=== PATIENT | female | born 1995 | race Caucasian/White ===

== ENCOUNTER 2016-11-28 20:05 | Emergency (ER) | payer OTHER ==
[~2016-11-28] VITALS: Ht 162.6 cm; Wt 52.0 kg
[~2016-11-28 20:05] MED LIST: DEPO150I IM; METR-1 PO; ZOFR4TAB PO
[2016-11-28 20:06] VITALS: BP 125/65; PULSE 86; RESP 16; TEMP 98.4; O2SAT 99
[2016-11-28] MEDS ORDERED: TRAM50TA PO (20:21)
[2016-11-28] MEDS ORDERED: IBUP-232 PO (20:21)
--- NOTE | 2016-11-28 20:22 | PD ---
HPI Chief Complaint: Injury Time Seen by Provider: 20:14 Travel History International Travel<30 days: No Contact w/Intl Traveler<30days: No Traveled to known affect area: No History of Present Illness HPI 21 year-old female presents to emergency department for evaluation of right wrist pain. Pain began after moving several sandbags. She states now it is painful to move. Rates the pain an 8 out of 10. No alterations in sensation. She reports no known injury. No trauma. No other symptoms to report. PFSH Past Medical History Medical History: Denies Significant Hx Autoimmune Disease: No Cardiovascular Problems: No Diminished Hearing: No Gastrointestinal Disorders: Yes Glaucoma: No Genitourinary: Yes Hepatitis: No Hiatal Hernia: No Hypertension: No Medical other: Yes (LOW BACK PAIN) Musculoskeletal: No Neurologic: No Psychiatric: No Reproductive: Yes (ENDOMETRIOSIS) Respiratory: No Immunizations Current: Yes Migraines: Yes ?: Not : 1 Para: 0 Dilation and Curettage (D&C): Yes (D&C FOR ENDOMETRIOSIS) Past Surgical History Gynecologic Surgery: Yes (ENDOSCOPY) Pacemaker: No Other Surgery: No Social History Alcohol Use: Yes ("COUPLE TIMES PER MONTH") Tobacco Use: Yes (1/2 PPD) Substance Use: No Allergies-Medications (Allergen,Severity, Reaction): Coded Allergies: No Known Allergies (Verified , 11/28/16) Reported Meds & Prescriptions Reported Meds & Active Scripts Active Ibuprofen 600 Mg Tab 600 Mg PO Q8HR PRN Tramadol (Tramadol HCl) 50 Mg Tab 50 Mg PO Q6H PRN Flagyl (Metronidazole) 500 Mg Tab 500 Mg PO TID Zofran (Ondansetron HCl) 4 Mg Tab 4 Mg PO Q6HR PRN Review of Systems Except as stated in HPI: all other systems reviewed are Neg Physical Exam Narrative GENERAL: Well-nourished female patient, in no acute distress SKIN: Focused skin assessment warm/dry. HEAD: Atraumatic. Normocephalic. EYES: Pupils equal and round. No scleral icterus. No injection or drainage. ENT: No nasal bleeding or discharge. Mucous membranes pink and moist. NECK: Trachea midline. No JVD. CARDIOVASCULAR: Regular rate and rhythm. No murmur appreciated. RESPIRATORY: No accessory muscle use. Clear to auscultation. Breath sounds equal bilaterally. MUSCULOSKELETAL: No obvious deformities. No clubbing. No cyanosis. No edema. Patient is full flexion extension and rotation of the right wrist. She does report tenderness with palpation along the lateral wrist proximal to the thumb. No erythema or edema. Cap refill within normal limits. Sensation intact distal to be. NEUROLOGICAL: Awake and alert. No obvious cranial nerve deficits. Motor grossly within normal limits. Normal speech. Data Data Last Documented VS Vital Signs Date Time Temp Pulse Resp B/P (MAP) Pulse Ox O2 Delivery O2 Flow Rate FiO2 11/28/16 20:25 11/28/16 20:06 98.4 86 16 99 Room Air MDM Medical Decision Making Medical Screen Exam Complete: Yes Emergency Medical Condition: Yes Medical Record Reviewed: Yes Differential Diagnosis Tendinitis versus osteoarthritic versus muscle strain versus unlikely fracture Narrative Course 21 year-old female presents for his primary for evaluation right wrist pain. With no history of trauma and knee been able to palpate all of the bony structures without exacerbating pain, x-ray imaging will not be done at this time. Based the patient's history and assessment, this likely a tendinitis. Patient was placed in an Bear wrap and encouraged to use her wrist brace. She is encouraged to follow-up with primary care provider and return immediately with any acute worsening of symptoms. Diagnosis Primary Impression: Right wrist tendonitis Referrals: Primary Care Physician Patient Instructions: General Instructions, Tendinitis (ED) Additional Instructions: Brace, ice and elevate to reduce pain and swelling Follow-up with a primary care provider Seek outpatient hand specialist evaluation of symptoms persist Return immediately with any acute worsening of symptoms Med/Other Pt SpecificInfo: Prescription(s) given Scripts Ibuprofen (Ibuprofen) 600 Mg Tab 600 MG PO Q8HR Y for PAIN, #30 TAB 0 Refills Prov: Angie Funez 11/28/16 Tramadol (Tramadol) 50 Mg Tab 50 MG PO Q6H Y for PAIN GREATER THAN 5, #6 TAB 0 Refills Prov: Angie Funez 11/28/16 Disposition: 01 DISCHARGE HOME Condition: Stable Angie Funez Nov 28, 2016 20:22
== END 2016-11-28 20:49 | disposition home or self-care (01) ==
LOC: EDTENT 20:05
DX: M77.8 Other enthesopathies, not elsewhere classified (principal); Z72.0 Tobacco use
CPT/HCPCS: 99283

== ENCOUNTER 2016-12-05 15:59 | Emergency (ER) | payer OTHER ==
[~2016-12-05] VITALS: Ht 162.6 cm; Wt 52.0 kg
[~2016-12-05 15:59] MED LIST changes: +IBUP-232 PO; +TRAM50TA PO
[2016-12-05 16:01] VITALS: BP 154/68; PULSE 100; RESP 24; TEMP 98.1; O2SAT 100
[2016-12-05] MEDS ORDERED: KETOROLAC TROMETHAMINE 60 MG/2 ML (IM) VIAL IM ONE ×2 (16:15→16:32)
--- NOTE | 2016-12-05 16:25 | PD ---
HPI Chief Complaint: Musculoskeletal Complaint Time Seen by Provider: 16:16 Travel History International Travel<30 days: No Contact w/Intl Traveler<30days: No Traveled to known affect area: No History of Present Illness HPI 21-year-old female presents to emergency department with continued right wrist pain after being diagnosed with tendinitis on November 28. She was lifting sandbags and heard a pop in her wrist with sudden onset of pain. She was evaluated on November 28 and was told that if her symptoms persist she may need to have an x-ray. Denies traumatic injury. She does have a follow-up appointment with her primary care provider on Monday, but the pain is unbearable. She has been using an Bear bandage and per splint for support. Has been taking ibuprofen, Tylenol, and tramadol for symptom management. Has also tried Biofreeze.. Denies paresthesias, loss of sensation to the affected extremity. Reports decreased range of motion of the right wrist secondary to pain. Denies swelling or redness to the area. Symptoms are moderate in severity. Pain is constant and aggravated with movement and palpation. No known relieving factors. Has no other medical complaints. No other modifying factors or associated signs and symptoms. PFSH Past Medical History Autoimmune Disease: No Cardiovascular Problems: No Diminished Hearing: No Gastrointestinal Disorders: Yes Glaucoma: No Genitourinary: Yes Hepatitis: No Hiatal Hernia: No Hypertension: No Musculoskeletal: No Neurologic: No Psychiatric: No Reproductive: Yes (ENDOMETRIOSIS) Respiratory: No Immunizations Current: Yes Migraines: Yes : 1 Para: 0 Dilation and Curettage (D&C): Yes (D&C FOR ENDOMETRIOSIS) Past Surgical History Gynecologic Surgery: Yes (ENDOSCOPY) Pacemaker: No Other Surgery: No Social History Alcohol Use: Yes ("COUPLE TIMES PER MONTH") Tobacco Use: Yes (1/2 PPD) Substance Use: No Allergies-Medications (Allergen,Severity, Reaction): Coded Allergies: No Known Allergies (Verified , 12/05/16) Reported Meds & Prescriptions Reported Meds & Active Scripts Active Lortab (Hydrocodone-Acetaminophen) 5-325 Mg Tab 1 Tab PO Q6H PRN Ibuprofen 600 Mg Tab 600 Mg PO Q8HR PRN Tramadol (Tramadol HCl) 50 Mg Tab 50 Mg PO Q6H PRN Flagyl (Metronidazole) 500 Mg Tab 500 Mg PO TID Zofran (Ondansetron HCl) 4 Mg Tab 4 Mg PO Q6HR PRN Review of Systems Except as stated in HPI: all other systems reviewed are Neg Physical Exam Narrative GENERAL: Well-nourished, well-developed female patient, in no acute distress SKIN: Warm and dry. HEAD: Atraumatic. Normocephalic. EYES: Pupils equal and round. No scleral icterus. No injection or drainage. ENT: Mucosa pink and moist. Airway patent. NECK: Trachea midline. CARDIOVASCULAR: Regular rate. RESPIRATORY: No accessory muscle use. GASTROINTESTINAL: Flat. 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 Right upper extremity is supple and non-tense with 2+ radial pulse and sensory intact. No obvious deformities. No clubbing. No cyanosis. NEUROLOGICAL: Awake and alert. Oriented 3. No obvious cranial nerve deficits. Motor grossly within normal limits. Normal speech. PSYCHIATRIC: Appropriate mood and affect; insight and judgment normal. Data Data Last Documented VS Vital Signs Date Time Temp Pulse Resp B/P (MAP) Pulse Ox O2 Delivery O2 Flow Rate FiO2 12/05/16 16:01 98.1 100 24 154/68 (96) 100 Room Air Orders Orders Wrist, Complete ([id number]) (12/05/16 16:15) Ketorolac Inj (Toradol Inj) (12/05/16 16:15) Ketorolac Inj (Toradol Inj) (12/05/16 16:32) [facility] Medical Decision Making Medical Screen Exam Complete: Yes Emergency Medical Condition: Yes Medical Record Reviewed: Yes Differential Diagnosis Wrist sprain, tendinitis, wrist pain, wrist injury Narrative Course 21-year-old female with continued wrist pain. She was seen on November 28 and diagnosed with tendinitis. No traumatic injury. No imaging was done on November 28. The patient does have follow-up appointment on Monday with her primary care provider. I will x-ray the wrist to rule out acute process. Toradol administered in the ER. Right wrist x-ray ordered. 1713: Right wrist x-ray concludes: Last 24 hours Impressions Wrist X-Ray 12/05/16 1615 Signed Impressions: Service Date/Time: Monday, December 05, 2016 16:31 - CONCLUSION: There is a cortical step-off at the base of the second metacarpal seen in only one projection. This is concerning for a fracture through the base of the second metacarpal. CT imaging of the hand/wrist could be performed for more definitive assessment Daniele Han MD I spoke with Dr. Briones, my attending physician, and she agrees my treatment plan. Volar splint placed in ED. Lortab prescribed for home. Instructed patient to follow up with hand surgeon. Patient provided copy of radiology report. Instructed patient to follow up with primary care provider. Patient verbalizes understanding and agreement with treatment plan. Patient is medically cleared and stable for discharge. Discussed reasons to return to the emergency department. Patient agrees with treatment plan. The patients vital signs are stable and the patient is stable for outpatient follow-up and treatment. Patient discharged home, stable and in no acute distress. Diagnosis Primary Impression: Right wrist injury Qualified Codes: S69.91XD - Unspecified injury of right wrist, hand and finger (s), subsequent encounter Referrals: [facility] Hand Surgeon Primary Care Physician Patient Instructions: General Instructions, Wrist Fracture in Adults (ED) Departure Forms: Tests/Procedures, Work Release Special Instructions: No use of right upper extremity while at work, until cleared by hand surgeon or primary care provider Additional Instructions: Tylenol or ibuprofen as directed and as needed to reduce pain Rest, ice, compress, and elevate extremity to decrease pain and inflammation Splint for support; do not remove splint until cleared by hand surgeon Avoid aggravating activity; increase activity as tolerated Follow-up with primary care provider Follow-up with hand surgeon Return to the emergency department immediately with worsening symptoms Med/Other Pt SpecificInfo: Prescription(s) given Scripts Hydrocodone-Acetaminophen (Lortab) 5-325 Mg Tab 1 TAB PO Q6H Y for PAIN, #10 TAB 0 Refills Prov: Rossy Askew 12/05/16 Disposition: 01 DISCHARGE HOME Condition: Stable Rossy Askew Dec 05, 2016 16:25
--- NOTE | 2016-12-05 16:45 | RADRPT ---
EXAM DATE/TIME: 12/05/2016 16:31 [facility] COMPARISON: No previous studies available for comparison. INDICATIONS : Right wrist pain after moving sandbags. MEDICAL HISTORY : None. SURGICAL HISTORY : None. ENCOUNTER: Initial ACUITY: 1 week PAIN SCORE: 10/10 LOCATION: Right lateral wrist. FINDINGS: The exam demonstrates a small cortical step-off from the base of the second metacarpal. This is somew hat difficult to visualize but concerning for fracture through the base of the second metacarpal. The remainder the osseous structures are intact. No retained foreign body is seen. CONCLUSION: There is a cortical step-off at the base of the second metacarpal seen in only one projection. This i s concerning for a fracture through the base of the second metacarpal. CT imaging of the hand/wrist c ould be performed for more definitive assessment Daniele Han MD on December 05, 2016 at 16:42 Board Certified Radiologist. This report was verified electronically.
[2016-12-05] MEDS ORDERED: HYDR-3533 PO (17:12)
== END 2016-12-05 17:33 | disposition home or self-care (01) ==
LOC: NEPK 15:59
DX: S69.91XA Unspecified injury of right wrist, hand and finger(s), initial encounter (principal); X50.9XXA Other and unspecified overexertion or strenuous movements or postures, initial encounter; Y93.89 Activity, other specified
CPT/HCPCS: 73110; 96372; 99284; J1885